=== PATIENT | male | born 1950 | race Caucasian/White ===

== ENCOUNTER 2024-07-10 06:03 | Inpatient (IN) | payer MEDICARE, OTHER ==
[~2024-07-10] VITALS: Ht 172.7 cm; Wt 80.8 kg
[2024-07-10] MEDS ORDERED: VANCOMYCIN 1 GM VIAL ONE (06:42)
[2024-07-10] MEDS ORDERED: LIDOCAINE 2%-EPI 1:100,000 30 ML VIAL ONE (06:42)
[2024-07-10] MEDS ORDERED: ANESTHESIA TRAY IN PYXIS 1 EA TRAY MC ONE (06:42)
[2024-07-10] MEDS ORDERED: dexaMETHasone SOD PHOSPHATE 2 ML ONE (06:42)
[2024-07-10] MEDS ORDERED: FENTANYL PF 250MCG/5ML AMPUL ONE (07:16)
[2024-07-10] MEDS ORDERED: ROCURONIUM BROMIDE 50 MG/5 ML ONE (07:17)
[2024-07-10] MEDS ORDERED: SEVOFLURANE 250 ML BOTTLE IH ONE (07:47)
[2024-07-10 10:15] VITALS: BP_SYST 111; BP_SYST 117; BP_DIAS 59; TEMP 97.7; O2SAT 94; O2SAT 97
[2024-07-10 10:30] VITALS: BP 125/74; TEMP 97.8; O2SAT 97
[2024-07-10 10:45] VITALS: BP 128/72; TEMP 97.6; O2SAT 99
[2024-07-10 11:00] VITALS: BP 131/78; TEMP 97.7; O2SAT 98
[2024-07-10] MEDS: IV NS 0.9% 1,000 ML IV PRN (11:50)
[2024-07-10] MEDS ORDERED: ONDANSETRON HCL/PF 4 MG/2 ML VIAL IV PRN (12:00)
[2024-07-10] MEDS ORDERED: ACETAMINOPHEN 325 MG TABLET PO PRN ×2 (12:00→13:30)
[2024-07-10] MEDS ORDERED: HYDROMORPHONE 1 MG/1 ML DISP.SYRIN IV PRN (12:00)
[2024-07-10] MEDS ORDERED: ONDANSETRON HCL/PF 4 MG/2 ML VIAL IVP PRN (13:30)
[2024-07-10] MEDS ORDERED: MORPHINE SULFATE INJ 2 MG/ML DISP.SYRIN IV PRN (13:30)
[2024-07-10] MEDS ORDERED: TAMS-12 PO (13:42)
[2024-07-10] MEDS ORDERED: MAGN400T26 PO (13:42)
[2024-07-10] MEDS ORDERED: FENO160T PO (13:42)
[2024-07-10] MEDS ORDERED: SENN-148 PO (13:42)
[2024-07-10] MEDS ORDERED: PRIM50TA27 PO (13:42)
[2024-07-10] MEDS ORDERED: GABA600T12 PO (13:42)
[2024-07-10] MEDS ORDERED: PROP80CA64 PO (13:42)
[2024-07-10] MEDS ORDERED: CHOL200026 PO (13:42)
[2024-07-10 16:00] VITALS: BP 137/65; TEMP 98.4; O2SAT 96
[2024-07-10] MEDS: GABAPENTIN 300 MG CAPSULE PO SCH (17:24)
[2024-07-10] MEDS: VANCOMYCIN 1 GM in IV D5W 250ml IV SCH (18:16)
[2024-07-10 20:00] VITALS: BP 139/70; TEMP 98.1; O2SAT 96
[2024-07-11 07:17] LABS: BASOPHILS % (AUTO) 0.1 % (0.0-2.0); HEMATOCRIT 34 % (39-51); HEMOGLOBIN 11.1 g/dL (13.5-17.5); LYMPHOCYTES # (AUTO) 1.9 K/uL (0.8-4.8); LYMPHOCYTES % (AUTO) 16.6 % (20.0-44.0); MEAN CORPUSCULAR HEMOGLOBIN 29 PG (26.0-33.0); MEAN CORPUSCULAR HGB CONC 33 g/dl (31.0-36.0); MEAN CORPUSCULAR VOLUME 89 fL (80-96); MONOCYTES # (AUTO) 1.1 K/uL (0.1-1.30); MONOCYTES % (AUTO) 9.4 % (2.0-12.0); NEUTROPHILS # (AUTO) 8.4 K/uL (1.8-8.9); NEUTROPHILS % (AUTO) 73.9 % (43.0-81.0); PLATELET COUNT (AUTO) 208 K/uL (150-450); RED BLOOD CELL COUNT(AUTO) 3.81 MIL/uL (4.5-6.0); RED CELL DISTRIBUTION WIDTH 14.7 % (11.5-15.0); WHITE BLOOD COUNT (AUTO) 11.4 K/uL (4.3-11.0)
[2024-07-11 08:00] VITALS: BP 131/60; TEMP 97.7; O2SAT 96
[2024-07-11 08:00] LABS: ALANINE AMINOTRANSFERASE 19 U/L (12-78); ALBUMIN 3.2 g/dL (3.4-5.0); ALKALINE PHOSPHATASE 51 U/L (46-116); ASPARTATE AMINOTRANSFERASE 10 U/L (15-37); BILIRUBIN,TOTAL 0.4 mg/dL (0.2-1.0); CALCIUM, SERUM 8.6 mg/dL (8.5-10.1); CARBON DIOXIDE 25 mmol/L (21-32); CHLORIDE 105 mmol/L (98-107); CREATININE 1.1 mg/dL (0.6-1.3); GLUCOSE 100 mg/dL (74-106); MAGNESIUM 2.1 mg/dL (1.8-2.4); PHOSPHORUS 2.8 mg/dL (2.5-4.9); POTASSIUM 3.6 mmol/L (3.5-5.1); SODIUM SERUM 138 mmol/L (136-145); TOTAL PROTEIN, SERUM 6.5 g/dL (6.4-8.2); UREA NITROGEN, BLOOD 12 mg/dL (7-18)
[2024-07-11] MEDS: TAMSULOSIN 0.4 MG CAP.SR.24H PO SCH (08:39)
[2024-07-11 08:44] VITALS: BP 131/60
[2024-07-11] MEDS: PRIMIDONE 50 MG TABLET PO SCH (08:44)
[2024-07-11] MEDS: PROPRANOLOL HCL 40 MG TABLET PO SCH (08:44)
[2024-07-11] MEDS: FENOFIBRATE NANOCRYS (145 MG) 145 MG TABLET PO SCH (08:49)
== END 2024-07-11 10:55 | disposition home or self-care (01) | DRG 141 ==
LOC: DS 06:03 → MED 10:35
PROVIDERS: ADMIT Internal Medicine; ATTEND Internal Medicine
PROC: 0NSR04Z Reposition Maxilla with Internal Fixation Device, Open Approach (ICD-10-PCS; principal; 2024-07-10)
PROC: 0N5T0ZZ Destruction of Right Mandible, Open Approach (ICD-10-PCS; 2024-07-10)
PROC: 0N5R0ZZ Destruction of Maxilla, Open Approach (ICD-10-PCS; 2024-07-10)
PROC: 0NSV04Z Reposition Left Mandible with Internal Fixation Device, Open Approach (ICD-10-PCS; 2024-07-10)
PROC: 0NST04Z Reposition Right Mandible with Internal Fixation Device, Open Approach (ICD-10-PCS; 2024-07-10)
PROC: 0NUV07Z Supplement Left Mandible with Autologous Tissue Substitute, Open Approach (ICD-10-PCS; 2024-07-10)
PROC: 0NUR07Z Supplement Maxilla with Autologous Tissue Substitute, Open Approach (ICD-10-PCS; 2024-07-10)
PROC: 0NUT07Z Supplement Right Mandible with Autologous Tissue Substitute, Open Approach (ICD-10-PCS; 2024-07-10)
PROC: 0NUR0JZ Supplement Maxilla with Synthetic Substitute, Open Approach (ICD-10-PCS; 2024-07-10)
DX: S02.40CA Maxillary fracture, right side, initial encounter for closed fracture (principal); M87.9 Osteonecrosis, unspecified; S02.40DA Maxillary fracture, left side, initial encounter for closed fracture; M27.2 Inflammatory conditions of jaws; X58.XXXA Exposure to other specified factors, initial encounter; Y92.9 Unspecified place or not applicable; D16.5 Benign neoplasm of lower jaw bone; E78.5 Hyperlipidemia, unspecified; I10 Essential (primary) hypertension; N40.0 Benign prostatic hyperplasia without lower urinary tract symptoms; J32.9 Chronic sinusitis, unspecified; M85.60 Other cyst of bone, unspecified site; S02.609A Fracture of mandible, unspecified, initial encounter for closed fracture
CPT/HCPCS: 36415; 80053-TC; 83735-TC; 84100-TC; 85025-TC; 88305-TC; 88311-TC; 88312-TC; A4223; A4338; C1713; G0378; J0330; J0461; J1100; J2704; J3010; J3370; J3490; J7030; J7060

== ENCOUNTER 2024-11-27 10:05 | Inpatient (IN) | payer MEDICARE, OTHER ==
[~2024-11-27] VITALS: Ht 172.7 cm; Wt 77.1 kg
[~2024-11-27 10:05] MED LIST: CHOL200026 PO; FENO160T PO; GABA600T12 PO; MAGN400T26 PO; PRIM50TA27 PO; PROP80CA64 PO; SENN-148 PO; TAMS-12 PO
[2024-11-27] MEDS: VANCOMYCIN 1 GM in IV D5W 250ml IV ONE (10:40)
[2024-11-27] MEDS ORDERED: ACETAMINOPHEN 325 MG TABLET ONE ×2 (11:00→11:06)
[2024-11-27] MEDS: ACETAMINOPHEN 325 MG TABLET PO PRN (11:12)
[2024-11-27] MEDS ORDERED: LIDOCAINE 2%-EPI 1:100,000 30 ML VIAL ONE (11:13)
[2024-11-27] MEDS ORDERED: VANCOMYCIN 1 GM VIAL ONE (11:14)
[2024-11-27] MEDS ORDERED: dexaMETHasone SOD PHOSPHATE 2 ML ONE (11:14)
[2024-11-27] MEDS ORDERED: FENTANYL PF 100MCG/2ML AMPUL ONE ×3 (11:14→12:59)
[2024-11-27] MEDS ORDERED: FAMOTIDINE/PF INJ 20 MG/2 ML VIAL IV ONE (11:15)
[2024-11-27] MEDS ORDERED: ROCURONIUM BROMIDE 50 MG/5 ML ONE (11:15)
[2024-11-27 11:16] LABS: INR 0.97 (0.91-1.10); PROTHROMBIN TIME 10.3 SECS (9.2-11.1)
[2024-11-27] MEDS: FENTANYL PF 100MCG/2ML AMPUL IV PRN (12:48)
[2024-11-27] MEDS ORDERED: LABETALOL HCL IV 100MG VIAL ONE (13:22)
[2024-11-27] MEDS: LABETALOL 20 MG/4 ML VIAL IV ONE (13:36)
[2024-11-27] MEDS ORDERED: HYDROMORPHONE 1 MG/1 ML DISP.SYRIN IV PRN (14:00)
[2024-11-27] MEDS ORDERED: ACETAMINOPHEN 325 MG TABLET PO PRN (14:00)
[2024-11-27] MEDS ORDERED: ONDANSETRON HCL/PF 4 MG/2 ML VIAL IV PRN (14:00)
[2024-11-27] MEDS ORDERED: hydrALAZINE HCL IV 20 MG VIAL ONE (14:16)
[2024-11-27] MEDS: hydrALAZINE HCL IV 20 MG VIAL IV PRN (14:18)
[2024-11-27 16:00] VITALS: BP 134/67; TEMP 97.7; O2SAT 97
[2024-11-27] MEDS ORDERED: Medication Not On Formulary EA (Fenofibrate 160 MG) PO SCH (16:30)
[2024-11-27] MEDS: GABAPENTIN 300 MG CAPSULE PO SCH (16:32)
[2024-11-27] MEDS: MAGNESIUM OXIDE 400 MG TABLET PO SCH (16:32)
[2024-11-27] MEDS: PRIMIDONE 50 MG TABLET PO SCH (16:33)
[2024-11-27] MEDS: TAMSULOSIN 0.4 MG CAP.SR.24H PO SCH (16:33)
[2024-11-27] MEDS: SENNOSIDES 8.6 MG TABLET PO SCH (16:33)
[2024-11-27] MEDS: IV NS 0.9% 1,000 ML IV PRN (18:16)
[2024-11-27 20:00] VITALS: BP 150/78; TEMP 97.7; O2SAT 98
[2024-11-27] MEDS: VANCOMYCIN 1 GM in IV D5W 250ml IV SCH (21:57)
[2024-11-27] MEDS: TRAZODONE 50 MG TABLET PO SCH (23:52)
[2024-11-28] VITALS: BP 138/60; TEMP 98.1; O2SAT 98
[2024-11-28] MEDS: CHOLECALCIFEROL 1,000 UNIT TABLET (VIT D3) PO SCH (08:06)
[2024-11-28 08:27] VITALS: BP 148/71; TEMP 98.2; O2SAT 97
[2024-11-28] MEDS ORDERED: PROPRANOLOL HCL 40 MG TABLET PO SCH ×2 (09:00)
== END 2024-11-28 11:00 | disposition home or self-care (01) | DRG 497 ==
LOC: DS 10:05 → MED 15:02
PROVIDERS: ADMIT Internal Medicine; ATTEND Internal Medicine
PROC: 0N5R0ZZ Destruction of Maxilla, Open Approach (ICD-10-PCS; principal; 2024-11-27)
PROC: 0NBT0ZZ Excision of Right Mandible, Open Approach (ICD-10-PCS; 2024-11-27)
PROC: 0NBV0ZZ Excision of Left Mandible, Open Approach (ICD-10-PCS; 2024-11-27)
PROC: 0NPW04Z Removal of Internal Fixation Device from Facial Bone, Open Approach (ICD-10-PCS; 2024-11-27)
PROC: 0WB30ZX Excision of Oral Cavity and Throat, Open Approach, Diagnostic (ICD-10-PCS; 2024-11-27)
DX: T84.69XA Infection and inflammatory reaction due to internal fixation device of other site, initial encounter (principal); J32.0 Chronic maxillary sinusitis; F17.200 Nicotine dependence, unspecified, uncomplicated; I10 Essential (primary) hypertension; E78.5 Hyperlipidemia, unspecified; K59.00 Constipation, unspecified; Y83.8 Other surgical procedures as the cause of abnormal reaction of the patient, or of later complication, without mention of misadventure at the time of the procedure; Y92.009 Unspecified place in unspecified non-institutional (private) residence as the place of occurrence of the external cause; N40.0 Benign prostatic hyperplasia without lower urinary tract symptoms; M27.2 Inflammatory conditions of jaws; K13.70 Unspecified lesions of oral mucosa
CPT/HCPCS: 36415; 85610-TC; 85730-TC; A4223; A4338; G0378; J0360; J1100; J1171; J2405; J2704; J3010; J3370; J3490; J7030; J7040; J7050; J7060

== ENCOUNTER 2025-04-23 06:36 | Inpatient (IN) | payer MEDICARE, OTHER ==
[~2025-04-23] VITALS: Ht 172.7 cm; Wt 76.2 kg
[2025-04-23] MEDS ORDERED: VANCOMYCIN 1 GM VIAL ONE (06:55)
[2025-04-23] MEDS ORDERED: LIDOCAINE 1%-EPI 1:100,000 20 ML VIAL ONE (06:55)
[2025-04-23] MEDS ORDERED: OXYMETAZOLINE HCL NASAL SPRAY 30 ML BOTTLE NS ONE (06:55)
[2025-04-23] MEDS ORDERED: dexaMETHasone SOD PHOSPHATE 2 ML ONE (06:55)
[2025-04-23] MEDS ORDERED: Magnesium 1 GM/2 ML VIAL ONE (07:09)
[2025-04-23] MEDS ORDERED: LIDOCAINE 2% JEL UROJET 10 ML MM ONE (07:09)
[2025-04-23] MEDS ORDERED: FENTANYL PF 100MCG/2ML AMPUL ONE (07:09)
[2025-04-23] MEDS ORDERED: MIDAZOLAM HCL 2 MG/2ML VIAL ONE (07:09)
[2025-04-23] MEDS ORDERED: LABETALOL 20 MG/4 ML VIAL ONE (07:09)
[2025-04-23] MEDS ORDERED: FAMOTIDINE/PF INJ 20 MG/2 ML VIAL IV ONE (07:10)
[2025-04-23] MEDS ORDERED: ROCURONIUM BROMIDE 50 MG/5 ML ONE (07:10)
[2025-04-23] MEDS ORDERED: ALBUTEROL SULFATE 8 GM HFA.AER.AD ONE (07:18)
[2025-04-23] MEDS ORDERED: MEPERIDINE HCL/PF 50 MG/ML DISP.SYRIN IV PRN (08:30)
[2025-04-23] MEDS ORDERED: SUGAMMADEX SODIUM 200 MG/2 ML VIAL IV ONE (08:51)
[2025-04-23] MEDS ORDERED: HYDROMORPHONE 1 MG/1 ML DISP.SYRIN IV PRN (11:00)
[2025-04-23] MEDS ORDERED: ONDANSETRON HCL/PF 4 MG/2 ML VIAL IV PRN (11:00)
[2025-04-23] MEDS ORDERED: APIX5TAB PO (11:02)
[2025-04-23] MEDS: ACETAMINOPHEN 325 MG TABLET PO PRN (11:07)
[2025-04-23] MEDS ORDERED: MAGNESIUM HYDROXIDE 30 ML UDC PO PRN (11:30)
[2025-04-23] MEDS ORDERED: MAG HYDROX/AL HYDROX/SIMETH 30 ML UDC PO PRN (11:30)
[2025-04-23] MEDS ORDERED: ONDANSETRON HCL/PF 4 MG/2 ML VIAL IVP PRN (11:30)
[2025-04-23] MEDS ORDERED: ACETAMINOPHEN 325 MG TABLET PO PRN (11:30)
[2025-04-23] MEDS: GABAPENTIN 300 MG CAPSULE PO SCH (13:28)
[2025-04-23] MEDS: IV NS 0.9% 1,000 ML IV PRN (15:15)
[2025-04-23 16:00] VITALS: BP 116/81; TEMP 98.4; O2SAT 96
[2025-04-23] MEDS: DOCUSATE SODIUM 100 MG CAPSULE PO SCH (16:10)
[2025-04-23 20:00] VITALS: BP 136/65; TEMP 97.7; O2SAT 98
[2025-04-23] MEDS: VANCOMYCIN 1 GM in IV D5W 250ml IV SCH (20:31)
[2025-04-24] MEDS: SENNOSIDES 8.6 MG TABLET PO SCH (08:32)
[2025-04-24 08:33] VITALS: BP 162/68
[2025-04-24] MEDS: PROPRANOLOL HCL 40 MG TABLET PO SCH (08:33)
[2025-04-24] MEDS: PRIMIDONE 50 MG TABLET PO SCH (08:34)
[2025-04-24] MEDS: TAMSULOSIN 0.4 MG CAP.SR.24H PO SCH (08:34)
[2025-04-24] MEDS: FENOFIBRATE NANOCRYS (145 MG) 145 MG TABLET PO SCH (08:34)
[2025-04-24] MEDS: CHOLECALCIFEROL 1,000 UNIT TABLET (VIT D3) PO SCH (08:35)
== END 2025-04-24 12:41 | disposition home or self-care (01) | DRG 908 ==
LOC: DS 06:36 → MED 10:23
PROC: 0NSV04Z Reposition Left Mandible with Internal Fixation Device, Open Approach (ICD-10-PCS; 2025-04-23)
PROC: 0NSR04Z Reposition Maxilla with Internal Fixation Device, Open Approach (ICD-10-PCS; 2025-04-23)
PROC: 0NST04Z Reposition Right Mandible with Internal Fixation Device, Open Approach (ICD-10-PCS; 2025-04-23)
PROC: 0NUV07Z Supplement Left Mandible with Autologous Tissue Substitute, Open Approach (ICD-10-PCS; 2025-04-23)
PROC: 0NUR07Z Supplement Maxilla with Autologous Tissue Substitute, Open Approach (ICD-10-PCS; 2025-04-23)
PROC: 0NUT07Z Supplement Right Mandible with Autologous Tissue Substitute, Open Approach (ICD-10-PCS; 2025-04-23)
PROC: 0N5V0ZZ Destruction of Left Mandible, Open Approach (ICD-10-PCS; 2025-04-23)
PROC: 0N5T0ZZ Destruction of Right Mandible, Open Approach (ICD-10-PCS; 2025-04-23)
PROC: 0N5R0ZZ Destruction of Maxilla, Open Approach (ICD-10-PCS; principal; 2025-04-23 07:30)
DX: T86.831 Bone graft failure (principal); I48.20 Chronic atrial fibrillation, unspecified; S02.40DK Maxillary fracture, left side, subsequent encounter for fracture with nonunion; S02.40CK Maxillary fracture, right side, subsequent encounter for fracture with nonunion; S02.69XK Fracture of mandible of other specified site, subsequent encounter for fracture with nonunion; Y83.8 Other surgical procedures as the cause of abnormal reaction of the patient, or of later complication, without mention of misadventure at the time of the procedure; Y92.009 Unspecified place in unspecified non-institutional (private) residence as the place of occurrence of the external cause; X58.XXXD Exposure to other specified factors, subsequent encounter; E78.5 Hyperlipidemia, unspecified; I10 Essential (primary) hypertension; Z79.01 Long term (current) use of anticoagulants; N40.0 Benign prostatic hyperplasia without lower urinary tract symptoms; M60.88 Other myositis, other site; D16.4 Benign neoplasm of bones of skull and face; Y83.2 Surgical operation with anastomosis, bypass or graft as the cause of abnormal reaction of the patient, or of later complication, without mention of misadventure at the time of the procedure
CPT/HCPCS: A4223; C1713; G0378; J1100; J1308; J1885; J2250; J2405; J2704; J2765; J3010; J3370; J3475; J3490; J7030; J7060

== ENCOUNTER 2025-08-12 09:29 | Inpatient (IN) | payer MEDICARE, OTHER ==
[~2025-08-12] VITALS: Ht 172.7 cm; Wt 73.0 kg
[~2025-08-12 09:29] MED LIST changes: +APIX5TAB PO; -MAGN400T26 PO
[2025-08-12] MEDS ORDERED: FENTANYL PF 250MCG/5ML AMPUL ONE (12:58)
[2025-08-12] MEDS ORDERED: LIDOCAINE 2%-EPI 1:100,000 30 ML VIAL ONE (13:10)
[2025-08-12] MEDS ORDERED: VANCOMYCIN 1 GM VIAL ONE (13:10)
[2025-08-12] MEDS ORDERED: dexaMETHasone SOD PHOSPHATE 2 ML ONE (13:10)
[2025-08-12] MEDS ORDERED: OXYMETAZOLINE HCL NASAL SPRAY 30 ML BOTTLE NS ONE (13:10)
[2025-08-12] MEDS ORDERED: IV NS 0.9% 1,000 ML IV PRN (15:30)
[2025-08-12] MEDS ORDERED: ANESTHESIA TRAY IN PYXIS 1 EA TRAY MC ONE (15:30)
[2025-08-12 16:00] VITALS: BP 133/62; TEMP 97.5; O2SAT 97
[2025-08-12] MEDS ORDERED: ONDANSETRON HCL/PF 4 MG/2 ML VIAL IV PRN (16:00)
[2025-08-12] MEDS ORDERED: HYDROMORPHONE 1 MG/1 ML DISP.SYRIN IV PRN (16:00)
[2025-08-12] MEDS: GABAPENTIN 400 MG CAPSULE PO SCH (17:00)
[2025-08-12] MEDS ORDERED: ONDANSETRON HCL/PF 4 MG/2 ML VIAL IVP PRN (17:00)
[2025-08-12] MEDS: APIXABAN 5 MG TABLET PO SCH (17:00)
[2025-08-12] MEDS ORDERED: ACETAMINOPHEN 325 MG TABLET PO PRN (17:00)
[2025-08-12 18:20] LABS: CALCIUM, SERUM 8.6 mg/dL (8.5-10.1); CREATININE 1.2 mg/dL (0.6-1.3); SODIUM SERUM 140.0 mmol/L (136-145); UREA NITROGEN, BLOOD 11.0 mg/dL (7-18)
[2025-08-12] MEDS: ACETAMINOPHEN 325 MG TABLET PO PRN (21:55)
[2025-08-13] MEDS: VANCOMYCIN 1 GM in IV D5W 250ml IV SCH (00:03)
[2025-08-13] MEDS: CHOLECALCIFEROL 1,000 UNIT TABLET (VIT D3) PO SCH (08:57)
[2025-08-13] MEDS: PRIMIDONE 50 MG TABLET PO SCH (08:57)
[2025-08-13] MEDS: FENOFIBRATE NANOCRYS (145 MG) 145 MG TABLET PO SCH (08:57)
[2025-08-13] MEDS: SENNOSIDES 8.6 MG TABLET PO SCH (08:57)
[2025-08-13] MEDS: TAMSULOSIN 0.4 MG CAP.SR.24H PO SCH (08:57)
[2025-08-13] MEDS: PROPRANOLOL LA 60 MG CAP.SA.24H PO SCH (09:00)
[2025-08-13 09:02] VITALS: BP 131/62; TEMP 97.9; O2SAT 98
== END 2025-08-13 15:51 | disposition home or self-care (01) | DRG 497 ==
LOC: DS 09:29 → MED 14:13
PROVIDERS: ADMIT Nurse Practitioner Acute Care; ATTEND Nurse Practitioner Acute Care
PROC: 0N5R0ZZ Destruction of Maxilla, Open Approach (ICD-10-PCS; 2025-08-12)
PROC: 0NPW04Z Removal of Internal Fixation Device from Facial Bone, Open Approach (ICD-10-PCS; 2025-08-12)
PROC: 0N5V0ZZ Destruction of Left Mandible, Open Approach (ICD-10-PCS; 2025-08-12)
PROC: 0N5T0ZZ Destruction of Right Mandible, Open Approach (ICD-10-PCS; 2025-08-12)
PROC: 0NBR0ZZ Excision of Maxilla, Open Approach (ICD-10-PCS; principal; 2025-08-12 12:50)
DX: T84.69XA Infection and inflammatory reaction due to internal fixation device of other site, initial encounter (principal); M27.2 Inflammatory conditions of jaws; D16.5 Benign neoplasm of lower jaw bone; I10 Essential (primary) hypertension; E78.5 Hyperlipidemia, unspecified; I48.91 Unspecified atrial fibrillation; N40.0 Benign prostatic hyperplasia without lower urinary tract symptoms; Z79.01 Long term (current) use of anticoagulants; Z79.899 Other long term (current) drug therapy; D03.9 Melanoma in situ, unspecified; J32.0 Chronic maxillary sinusitis; D16.4 Benign neoplasm of bones of skull and face; M89.38 Hypertrophy of bone, other site; Y83.8 Other surgical procedures as the cause of abnormal reaction of the patient, or of later complication, without mention of misadventure at the time of the procedure; Y92.009 Unspecified place in unspecified non-institutional (private) residence as the place of occurrence of the external cause
CPT/HCPCS: 36415; 80048-TC; 88300-TC; 88305-TC; 88311-TC; A4217; A4223; A4338; G0378; J0330; J0360; J0461; J0690; J1100; J2312; J2704; J3010; J3373; J3490; J7030; J7060